=== PATIENT | male | born 1955 | race Hispanic/Latino ===

== ENCOUNTER 2017-05-03 08:24 | Inpatient (IN) | payer MEDICARE ==
[~2017-05-03] VITALS: Ht 165.1 cm; Wt 105.1 kg
[2017-05-03] MEDS ORDERED: KETOROLAC TROMETHAMINE 30MG/ML ONE (08:52)
[2017-05-03] MEDS ORDERED: DICYCLOMINE HCL 20 MG TAB ONE (08:53)
[2017-05-03 08:56] LABS: BASOPHILS % (AUTO) 0.7 % (0.0-5.0); EOSINOPHILS % (AUTO) 1.9 % (0.0-8.0); HEMATOCRIT 47.3 % (42-54); LYMPHOCYTES % (AUTO) 23.2 % (21.0-51.0); MEAN CORPUSCULAR HEMOGLOBIN 31.1 pg (27.0-33.0); MEAN CORPUSCULAR HGB CONC 33.6 g/dL (32.0-36.0); MEAN CORPUSCULAR VOLUME 92.6 fL (79-99); MONOCYTES % (AUTO) 7.3 % (3.0-13.0); NEUTROPHILS % (AUTO) 66.9 % (40.0-77.0); PLATELET COUNT (AUTO) 242 K/uL (130-400); RED CELL DISTRIBUTION WIDTH 13.1 % (11.0-15.5); WHITE BLOOD COUNT (AUTO) 6.1 K/uL (4.8-10.8)
[2017-05-03 09:08] LABS: CREATININE 0.9 mg/dL (0.5-1.5); POTASSIUM 3.7 mmol/L (3.5-5.1)
[2017-05-03 09:14] LABS: ALBUMIN 3.6 g/dL (3.5-5.0); BILIRUBIN,DIRECT 0.2 mg/dL (0.0-0.3); BILIRUBIN,TOTAL 0.6 mg/dL (0.2-1.0); TOTAL PROTEIN, SERUM 7.3 g/dL (6.0-8.3)
[2017-05-03] MEDS ORDERED: MORPHINE SULFATE 2 MG/ML 1ML SYG ONE ×5 (09:58→21:49)
[2017-05-03] MEDS ORDERED: PHENYTOIN SODIUM 100 MG ERCAP PO ONE (10:34)
[2017-05-03] MEDS ORDERED: SODIUM CHLORIDE 0.9% 1000ML 1,000 ML IV ONE (10:40)
[2017-05-03] MEDS ORDERED: ONDANSETRON HCL 4 MG/2 ML VIAL ONE ×2 (12:48→18:03)
[2017-05-03] MEDS ORDERED: FAMOTIDINE/PF 20 MG/2 ML VIAL IV ONE (12:49)
[2017-05-03 16:00] LABS: APPEARANCE,URINE Clear (CLEAR); BILIRUBIN,URINE Negative (NEGATIVE); COLOR,URINE Yellow (YELLOW); GLUCOSE, URINE (UA) Negative (NEGATIVE); KETONES,URINE Negative (NEGATIVE); LEUKOCYTE ESTERASE ,URINE Negative (NEGATIVE); NITRATE,URINE Negative (NEGATIVE); OCCULT BLOOD,URINE Negative (NEGATIVE); PH,URINE 5.5 (5.0-8.0); PROTEIN,URINE Trace (NEGATIVE)
[2017-05-03] MEDS ORDERED: ZOLPIDEM TARTRATE 5 MG TAB ONE (20:12)
[2017-05-03] MEDS ORDERED: HYDRALAZINE HCL 20 MG/ML VIAL IV PRN (21:45)
[2017-05-03] MEDS ORDERED: ACETAMINOPHEN 325 MG TAB PO PRN (21:45)
[2017-05-03] MEDS ORDERED: ONDANSETRON HCL 4 MG/2 ML VIAL IV PRN (21:45)
[2017-05-03 22:15] VITALS: BP 131/81
[2017-05-03] MEDS ORDERED: CEFTRIAXONE SODIUM 1 GM ONE (23:03)
[2017-05-03] MEDS: CEFTRIAXONE 1GM/D5W 50ML 50 ML IV SCH (23:14)
[2017-05-03] MEDS: SODIUM CHLORIDE 0.9% 1000ML 1,000 ML IV SCH (23:15)
[2017-05-04] VITALS: BP 113/80
[2017-05-04] MEDS: MORPHINE SULFATE 2 MG/ML 1ML SYG IV PRN ×5 (00:27→22:44)
[2017-05-04 04:00] VITALS: BP 121/80
[2017-05-04 05:17] LABS: EOSINOPHILS % (AUTO) 3.1 % (0.0-8.0); HEMATOCRIT 43.9 % (42-54); LYMPHOCYTES % (AUTO) 26.6 % (21.0-51.0); MEAN CORPUSCULAR HEMOGLOBIN 31.4 pg (27.0-33.0); MEAN CORPUSCULAR HGB CONC 33.9 g/dL (32.0-36.0); MEAN CORPUSCULAR VOLUME 92.7 fL (79-99); MONOCYTES % (AUTO) 10.3 % (3.0-13.0); PLATELET COUNT (AUTO) 236 K/uL (130-400); RED BLOOD CELL COUNT(AUTO) 4.73 MIL/uL (4.50-6.20); RED CELL DISTRIBUTION WIDTH 13.1 % (11.0-15.5); WHITE BLOOD COUNT (AUTO) 5.4 K/uL (4.8-10.8)
[2017-05-04 05:21] LABS: PHENYTOIN (DILANTIN) 2.7 mcg/mL (10.0-20.0); POTASSIUM 3.9 mmol/L (3.5-5.1)
[2017-05-04] MEDS: INSULIN LISPRO 100 UNIT/ML 3ML SQ SCH ×4 (06:52→21:00)
[2017-05-04] MEDS: SODIUM CHLORIDE 0.9% 1000ML 1,000 ML IV SCH ×2 (07:39→18:39)
[2017-05-04 07:43] VITALS: BP 124/80
[2017-05-04] MEDS ORDERED: PANTOPRAZOLE 40 MG/VIAL IVP SCH (09:00)
[2017-05-04] MEDS: FAMOTIDINE/PF 20 MG/2 ML VIAL IV SCH ×2 (10:56→21:08)
[2017-05-04 11:18] VITALS: BP 152/85
[2017-05-04] MEDS ORDERED: GABA-529 PO (11:33)
[2017-05-04] MEDS ORDERED: MEMA10TA11 PO (11:33)
[2017-05-04] MEDS ORDERED: PHEN100C23 PO (11:33)
[2017-05-04] MEDS ORDERED: LISI1TAB13 PO (11:33)
[2017-05-04 16:15] VITALS: BP 128/96
[2017-05-04 20:00] VITALS: BP 130/80
[2017-05-04] MEDS: CEFTRIAXONE SODIUM 1 GM IVP SCH (21:06)
[2017-05-04] MEDS: CEFTRIAXONE 1GM/D5W 50ML 50 ML IV SCH (21:07)
[2017-05-05] VITALS (12 sets, daily range): BP systolic 98–174; BP diastolic 62–105
[2017-05-05] MEDS: MORPHINE SULFATE 2 MG/ML 1ML SYG IV PRN ×3 (05:00→14:11)
[2017-05-05] MEDS: INSULIN LISPRO 100 UNIT/ML 3ML SQ SCH ×4 (05:23→21:00)
[2017-05-05] MEDS: FAMOTIDINE/PF 20 MG/2 ML VIAL IV SCH ×2 (08:23→20:44)
[2017-05-05] MEDS ORDERED: PHENYTOIN SODIUM 100 MG ERCAP PO SCH (14:00)
[2017-05-05] MEDS: GABAPENTIN 100 MG CAPSULE PO SCH ×2 (14:05→20:45)
[2017-05-05] MEDS ORDERED: LORAZEPAM 2 MG/ML 1 ML VIAL ONE (14:32)
[2017-05-05] MEDS ORDERED: SODIUM CHLORIDE 0.9% 1000ML 1,000 ML IV SCH (14:37)
[2017-05-05] MEDS ORDERED: LORAZEPAM 2 MG/ML 1 ML VIAL IVP PRN (14:45)
[2017-05-05 14:48] LABS: BASOPHILS % (AUTO) 1.1 % (0.0-5.0); HEMATOCRIT 45.4 % (42-54); MEAN CORPUSCULAR HEMOGLOBIN 30.9 pg (27.0-33.0); MEAN CORPUSCULAR HGB CONC 33.4 g/dL (32.0-36.0); MEAN CORPUSCULAR VOLUME 92.3 fL (79-99); NEUTROPHILS % (AUTO) 55.9 % (40.0-77.0); PLATELET COUNT (AUTO) 233 K/uL (130-400); RED BLOOD CELL COUNT(AUTO) 4.91 MIL/uL (4.50-6.20); RED CELL DISTRIBUTION WIDTH 13.1 % (11.0-15.5); WHITE BLOOD COUNT (AUTO) 5.5 K/uL (4.8-10.8)
[2017-05-05 14:59] LABS: INR 1.06 (0.85-1.15); PARTIAL THROMBOPLASTIN TIME 29.2 SEC (26.3-35.5); PROTHROMBIN TIME 11.1 SEC (9.6-11.6)
[2017-05-05] MEDS ORDERED: PHENYTOIN SODIUM 50 MG/ML 2ML VIAL IV SCH (15:00)
[2017-05-05 15:03] LABS: CARBON DIOXIDE 28 mmol/L (21-32); CHLORIDE 99 mmol/L (101-111); CREATININE 0.8 mg/dL (0.5-1.5); GLOMERULAR FILTR. RATE CALC 104 mL/min (>60); GLUCOSE,RANDOM 105 mg/dL (70-105); POTASSIUM 3.7 mmol/L (3.5-5.1); SODIUM SERUM 135 mmol/L (136-145); UREA NITROGEN, BLOOD 17 mg/dL (7-18)
[2017-05-05 15:22] LABS: CREATINE KINASE MB < 0.5 ng/mL (0.5-3.6); CREATINE KINASE, TOTAL 42 U/L (21-232); MYOGLOBIN 42 ng/mL (10-92); PHENYTOIN (DILANTIN) 1.3 mcg/mL (10.0-20.0); TROPONIN I < 0.04 ng/mL (0.00-0.06)
[2017-05-05] MEDS: SODIUM CHLORIDE 0.9% 1000ML 1,000 ML IV SCH ×3 (17:51→23:08)
[2017-05-05] MEDS: CEFTRIAXONE SODIUM 1 GM IVP SCH (20:44)
[2017-05-05] MEDS: MEMANTINE HCL 5 MG TABLET PO SCH (20:45)
[2017-05-05] MEDS: CEFTRIAXONE 1GM/D5W 50ML 50 ML IV SCH (20:52)
[2017-05-05] MEDS ORDERED: PHENYTOIN SODIUM 50MG/ML 2ML 0 MG in SODIUM CHLORIDE 0.9% 50 ML IV SCH (22:00)
[2017-05-05] MEDS: PHENYTOIN SODIUM 50 MG/ML 2ML VIAL IV SCH (22:25)
[2017-05-06] VITALS (7 sets, daily range): BP systolic 116–161; BP diastolic 74–96
[2017-05-06] MEDS: PHENYTOIN SODIUM 50 MG/ML 2ML VIAL IV SCH (05:06)
[2017-05-06] MEDS: INSULIN LISPRO 100 UNIT/ML 3ML SQ SCH ×4 (06:22→21:00)
[2017-05-06] MEDS: GABAPENTIN 100 MG CAPSULE PO SCH ×3 (08:13→19:39)
[2017-05-06] MEDS: HYDROCHLOROTHIAZIDE 25 MG TABLET PO SCH (08:13)
[2017-05-06] MEDS: LISINOPRIL 20 MG TABLET PO SCH (08:14)
[2017-05-06] MEDS: FAMOTIDINE/PF 20 MG/2 ML VIAL IV SCH ×2 (08:14→19:41)
[2017-05-06] MEDS: MEMANTINE HCL 5 MG TABLET PO SCH ×2 (08:14→19:41)
[2017-05-06] MEDS: SODIUM CHLORIDE 0.9% 1000ML 1,000 ML IV SCH ×2 (08:14→22:15)
[2017-05-06] MEDS ORDERED: PHENYTOIN SODIUM IV SCH (10:00)
[2017-05-06] MEDS ORDERED: SODIUM CHLORIDE 0.9% IV SCH (10:00)
[2017-05-06] MEDS: SODIUM CHLORIDE 0.9% IV SCH ×2 (13:43→22:14)
[2017-05-06] MEDS: PHENYTOIN SODIUM IV SCH ×2 (13:43→22:14)
[2017-05-06] MEDS ORDERED: PHENYTOIN SODIUM 50 MG/ML 2ML VIAL IV SCH (14:00)
[2017-05-06] MEDS: ZOLPIDEM TARTRATE 5 MG TAB PO PRN (19:40)
[2017-05-06] MEDS: WATER FOR INJECTION,STERILE 20 ML VIAL IJ SCH (19:41)
[2017-05-06] MEDS: CEFTRIAXONE SODIUM 1 GM IVP SCH (19:41)
[2017-05-06] MEDS: CEFTRIAXONE 1GM/D5W 50ML 50 ML IV SCH (21:28)
[2017-05-06] MEDS ORDERED: SODIUM CHLORIDE 0.9% 200 ML IV ONE (21:47)
[2017-05-06] MEDS ORDERED: PHENYTOIN SODIUM 50 MG/ML 2ML VIAL IV ONE (22:11)
[2017-05-07 04:00] VITALS: BP 120/81
[2017-05-07] MEDS: SODIUM CHLORIDE 0.9% 1000ML 1,000 ML IV SCH ×2 (05:39→11:13)
[2017-05-07] MEDS ORDERED: PHENYTOIN SODIUM 50 MG/ML 2ML VIAL IV ONE (05:49)
[2017-05-07] MEDS: PHENYTOIN SODIUM IV SCH (05:58)
[2017-05-07] MEDS: MORPHINE SULFATE 2 MG/ML 1ML SYG IV PRN ×3 (05:58→16:25)
[2017-05-07] MEDS: SODIUM CHLORIDE 0.9% IV SCH (05:58)
[2017-05-07] MEDS: INSULIN LISPRO 100 UNIT/ML 3ML SQ SCH ×4 (06:28→20:05)
[2017-05-07 08:00] VITALS: BP 119/79
[2017-05-07] MEDS: FAMOTIDINE/PF 20 MG/2 ML VIAL IV SCH ×2 (08:55→20:04)
[2017-05-07] MEDS: MEMANTINE HCL 5 MG TABLET PO SCH ×2 (08:56→20:04)
[2017-05-07] MEDS: GABAPENTIN 100 MG CAPSULE PO SCH ×3 (08:56→20:04)
[2017-05-07] MEDS: HYDROCHLOROTHIAZIDE 25 MG TABLET PO SCH (08:56)
[2017-05-07] MEDS: LISINOPRIL 20 MG TABLET PO SCH (08:56)
[2017-05-07 11:00] VITALS: BP 129/80
[2017-05-07 16:00] VITALS: BP 134/68
[2017-05-07] MEDS: ZOLPIDEM TARTRATE 5 MG TAB PO PRN (20:03)
[2017-05-07] MEDS: CEFTRIAXONE SODIUM 1 GM IVP SCH (20:04)
[2017-05-07] MEDS: WATER FOR INJECTION,STERILE 20 ML VIAL IJ SCH (20:04)
[2017-05-07] MEDS: PHENYTOIN SODIUM 50 MG/ML 2ML VIAL IV SCH (20:05)
[2017-05-07] MEDS: CEFTRIAXONE 1GM/D5W 50ML 50 ML IV SCH (20:06)
[2017-05-07 20:15] VITALS: BP 133/84
[2017-05-08] MEDS: SODIUM CHLORIDE 0.9% 1000ML 1,000 ML IV SCH ×3 (01:39→20:09)
[2017-05-08] MEDS: INSULIN LISPRO 100 UNIT/ML 3ML SQ SCH ×4 (05:53→20:10)
[2017-05-08 08:09] VITALS: BP 138/90
[2017-05-08] MEDS ORDERED: SODIUM CHLORIDE 0.9% 250 ML IV ONE (08:21)
[2017-05-08] MEDS: PHENYTOIN SODIUM 50 MG/ML 2ML VIAL IV SCH ×2 (08:26→19:51)
[2017-05-08] MEDS: HYDROCHLOROTHIAZIDE 25 MG TABLET PO SCH (08:37)
[2017-05-08] MEDS: LISINOPRIL 20 MG TABLET PO SCH (08:37)
[2017-05-08] MEDS: FAMOTIDINE/PF 20 MG/2 ML VIAL IV SCH ×2 (08:37→19:51)
[2017-05-08] MEDS: GABAPENTIN 100 MG CAPSULE PO SCH ×3 (08:37→20:11)
[2017-05-08] MEDS: MEMANTINE HCL 5 MG TABLET PO SCH ×2 (08:37→19:51)
[2017-05-08 11:35] VITALS: BP 149/98
[2017-05-08] MEDS: CYCLOBENZAPRINE HCL 10 MG TABLET PO SCH ×2 (15:26→20:11)
[2017-05-08 16:22] VITALS: BP 132/90
[2017-05-08 19:00] VITALS: BP 144/85
[2017-05-08] MEDS ORDERED: MAGNESIUM CITRATE 296 ML SOLUTION PO ONE (19:30)
[2017-05-08] MEDS: ZOLPIDEM TARTRATE 5 MG TAB PO PRN (19:51)
[2017-05-08] MEDS: CEFTRIAXONE SODIUM 1 GM IVP SCH (19:51)
[2017-05-08] MEDS: WATER FOR INJECTION,STERILE 20 ML VIAL IJ SCH (19:52)
[2017-05-08 23:45] VITALS: BP 112/58
[2017-05-09 04:00] VITALS: BP 124/78
[2017-05-09] MEDS: INSULIN LISPRO 100 UNIT/ML 3ML SQ SCH ×4 (06:21→21:00)
[2017-05-09] MEDS: SODIUM CHLORIDE 0.9% 1000ML 1,000 ML IV SCH ×2 (07:39→17:39)
[2017-05-09 07:50] VITALS: BP 144/89
[2017-05-09] MEDS: HYDROCHLOROTHIAZIDE 25 MG TABLET PO SCH (08:30)
[2017-05-09] MEDS: CYCLOBENZAPRINE HCL 10 MG TABLET PO SCH ×3 (08:30→19:57)
[2017-05-09] MEDS: LISINOPRIL 20 MG TABLET PO SCH (08:31)
[2017-05-09] MEDS: MEMANTINE HCL 5 MG TABLET PO SCH ×2 (08:31→19:57)
[2017-05-09] MEDS: GABAPENTIN 100 MG CAPSULE PO SCH ×3 (08:31→19:57)
[2017-05-09] MEDS: PHENYTOIN SODIUM 50 MG/ML 2ML VIAL IV SCH ×2 (08:47→19:55)
[2017-05-09] MEDS: FAMOTIDINE/PF 20 MG/2 ML VIAL IV SCH ×2 (08:47→19:55)
[2017-05-09] MEDS ORDERED: SODIUM CHLORIDE 0.9% 250 ML IV ONE (08:49)
[2017-05-09 11:27] VITALS: BP 141/92
[2017-05-09 16:30] VITALS: BP 118/79
[2017-05-09] MEDS: CEFTRIAXONE SODIUM 1 GM IVP SCH (19:55)
[2017-05-09] MEDS: WATER FOR INJECTION,STERILE 20 ML VIAL IJ SCH (19:56)
[2017-05-09] MEDS: ZOLPIDEM TARTRATE 5 MG TAB PO PRN (19:57)
[2017-05-09 20:00] VITALS: BP 157/91
[2017-05-10] VITALS (24 sets, daily range): BP systolic 115–155; BP diastolic 73–96
[2017-05-10] MEDS: SODIUM CHLORIDE 0.9% 1000ML 1,000 ML IV SCH ×3 (04:26→20:03)
[2017-05-10] MEDS: INSULIN LISPRO 100 UNIT/ML 3ML SQ SCH ×4 (06:30→21:00)
[2017-05-10] MEDS: PHENYTOIN SODIUM 50 MG/ML 2ML VIAL IV SCH ×2 (08:10→19:58)
[2017-05-10] MEDS: FAMOTIDINE/PF 20 MG/2 ML VIAL IV SCH ×2 (08:10→19:59)
[2017-05-10] MEDS: GABAPENTIN 100 MG CAPSULE PO SCH ×4 (09:00→19:59)
[2017-05-10] MEDS: MEMANTINE HCL 5 MG TABLET PO SCH ×2 (09:00→19:59)
[2017-05-10] MEDS: CYCLOBENZAPRINE HCL 10 MG TABLET PO SCH ×3 (09:00→19:59)
[2017-05-10] MEDS: LISINOPRIL 20 MG TABLET PO SCH (09:00)
[2017-05-10] MEDS: HYDROCHLOROTHIAZIDE 25 MG TABLET PO SCH (09:00)
[2017-05-10] MEDS ORDERED: LIDOCAINE PF 2% 5ML ABBOJECT ONE (10:43)
[2017-05-10] MEDS ORDERED: ONDANSETRON HCL 4 MG/2 ML VIAL ONE (10:43)
[2017-05-10] MEDS ORDERED: PROPOFOL 10 MG/ML 20ML VIAL IV ONE (10:43)
[2017-05-10] MEDS ORDERED: DEXAMETHASONE SOD PHOSPHATE 10MG/ML 1ML VIAL ONE (10:43)
[2017-05-10] MEDS ORDERED: MIDAZOLAM HCL 1 MG/ML 2ML VIAL ONE (10:43)
[2017-05-10] MEDS ORDERED: GLYCOPYRROLATE 0.2 MG/ML 5 ML VIAL ONE (10:43)
[2017-05-10] MEDS ORDERED: FENTANYL CITRATE PF 50 MCG/1 ML 2ML VIAL ONE ×2 (10:45→12:31)
[2017-05-10] MEDS ORDERED: BACITRACIN 50,000 UNIT VIAL ONE (11:12)
[2017-05-10] MEDS ORDERED: BUPIVACAINE/PF 0.5% 30ML VIAL ONE (11:36)
[2017-05-10] MEDS ORDERED: LIDOCAINE 1%-EPI 1:100,000 20 ML VIAL IJ ONE (11:36)
[2017-05-10] MEDS ORDERED: BUPIVACAINE/PF 0.25% 30ML VIAL IJ ONE (11:36)
[2017-05-10] MEDS ORDERED: BACITRACIN 28.4 GM OINT TP ONE (12:29)
[2017-05-10] MEDS ORDERED: MEPERIDINE-PF 25 MG/ML SYG ONE ×2 (12:58→13:09)
[2017-05-10] MEDS: MORPHINE SULFATE 2 MG/ML 1ML SYG IV PRN ×2 (14:43→18:48)
[2017-05-10] MEDS: WATER FOR INJECTION,STERILE 20 ML VIAL IJ SCH (19:58)
[2017-05-10] MEDS: CEFTRIAXONE SODIUM 1 GM IVP SCH (19:58)
[2017-05-10] MEDS: MORPHINE SULFATE 4 MG/1ML SYG IV PRN (22:00)
[2017-05-10] MEDS: ZOLPIDEM TARTRATE 5 MG TAB PO PRN (23:48)
[2017-05-11] VITALS: BP 136/85
[2017-05-11] MEDS: MORPHINE SULFATE 4 MG/1ML SYG IV PRN ×3 (02:45→12:46)
[2017-05-11 04:00] VITALS: BP 128/73
[2017-05-11 05:39] LABS: CREATININE 0.8 mg/dL (0.5-1.5); POTASSIUM 4.1 mmol/L (3.5-5.1)
[2017-05-11 05:41] LABS: MEAN CORPUSCULAR HEMOGLOBIN 31.8 pg (27.0-33.0); MEAN CORPUSCULAR VOLUME 93.4 fL (79-99); PLATELET COUNT (AUTO) 191 K/uL (130-400); RED BLOOD CELL COUNT(AUTO) 4.28 MIL/uL (4.50-6.20); WHITE BLOOD COUNT (AUTO) 7.6 K/uL (4.8-10.8)
[2017-05-11 06:04] LABS: BAND NEUTROPHILS % (MANUAL) 2 % (0-2); BASOPHILS % (MANUAL) 3 % (0-2); EOSINOPHILS % (MANUAL) 1 % (1-6); LYMPHOCYTES % (MANUAL) 13 % (22-44); MAN.DIFF COMMENT-IMPRESSION MANUAL DIFFERENTIAL; MONOCYTES % (MANUAL) 6 % (2-9); PLATELET MORPHOLOGY COMMENT ADEQUATE; SEGMENTED NEUTROPHILS % 75 % (40-70)
[2017-05-11] MEDS: INSULIN LISPRO 100 UNIT/ML 3ML SQ SCH ×4 (06:07→21:00)
[2017-05-11 08:05] VITALS: BP 147/83
[2017-05-11] MEDS: LISINOPRIL 20 MG TABLET PO SCH (08:23)
[2017-05-11] MEDS: FAMOTIDINE/PF 20 MG/2 ML VIAL IV SCH ×2 (08:23→20:41)
[2017-05-11] MEDS: HYDROCHLOROTHIAZIDE 25 MG TABLET PO SCH (08:23)
[2017-05-11] MEDS: CYCLOBENZAPRINE HCL 10 MG TABLET PO SCH ×3 (08:23→20:41)
[2017-05-11] MEDS: MEMANTINE HCL 5 MG TABLET PO SCH ×2 (08:23→20:40)
[2017-05-11] MEDS: GABAPENTIN 100 MG CAPSULE PO SCH ×3 (08:24→20:40)
[2017-05-11] MEDS: PHENYTOIN SODIUM 50 MG/ML 2ML VIAL IV SCH (08:24)
[2017-05-11] MEDS ORDERED: COMPOUND IV MISC 1 EACH IVSOLN MISC PRN (08:45)
[2017-05-11] MEDS: PHENYTOIN SODIUM 50MG/ML 2ML 200 MG in SODIUM CHLORIDE 0.9% 50 ML IV SCH ×2 (09:02→22:02)
[2017-05-11] MEDS: SODIUM CHLORIDE 0.9% 1000ML 1,000 ML IV SCH ×2 (09:39→20:42)
[2017-05-11 11:26] VITALS: BP 140/81
[2017-05-11 16:18] VITALS: BP 104/58
[2017-05-11] MEDS: LACTULOSE 20 GM/30 ML UDCUP PO PRN (18:24)
[2017-05-11] MEDS: ZOLPIDEM TARTRATE 5 MG TAB PO PRN (18:35)
[2017-05-11 19:00] VITALS: BP 121/74
[2017-05-11] MEDS ORDERED: PHENYTOIN SODIUM 50 MG/ML 2ML VIAL IV ONE (19:40)
[2017-05-11] MEDS: WATER FOR INJECTION,STERILE 20 ML VIAL IJ SCH (20:41)
[2017-05-11] MEDS: CEFTRIAXONE SODIUM 1 GM IVP SCH (20:41)
[2017-05-12 00:06] VITALS: BP 125/74
[2017-05-12] MEDS: SODIUM CHLORIDE 0.9% 1000ML 1,000 ML IV SCH ×2 (01:26→15:39)
[2017-05-12 04:00] VITALS: BP 102/63
[2017-05-12] MEDS: INSULIN LISPRO 100 UNIT/ML 3ML SQ SCH ×4 (05:49→21:00)
[2017-05-12 06:56] VITALS: BP 112/60
[2017-05-12] MEDS: MEMANTINE HCL 5 MG TABLET PO SCH ×2 (08:38→19:41)
[2017-05-12] MEDS: GABAPENTIN 100 MG CAPSULE PO SCH ×3 (08:38→19:42)
[2017-05-12] MEDS: CYCLOBENZAPRINE HCL 10 MG TABLET PO SCH ×3 (08:38→19:41)
[2017-05-12] MEDS: FAMOTIDINE/PF 20 MG/2 ML VIAL IV SCH ×2 (08:38→19:42)
[2017-05-12] MEDS: HYDROCHLOROTHIAZIDE 25 MG TABLET PO SCH (08:39)
[2017-05-12] MEDS: LISINOPRIL 20 MG TABLET PO SCH (08:39)
[2017-05-12] MEDS: OXYCODONE/ACETAMIN 5/325MG TAB PO PRN ×3 (08:39→21:22)
[2017-05-12] MEDS: PHENYTOIN SODIUM 50MG/ML 2ML 200 MG in SODIUM CHLORIDE 0.9% 50 ML IV SCH (10:06)
[2017-05-12 11:00] VITALS: BP 115/72
[2017-05-12] MEDS: PHENYTOIN SODIUM 100 MG ERCAP PO SCH ×2 (14:43→19:42)
[2017-05-12 16:00] VITALS: BP 120/69
[2017-05-12] MEDS: ZOLPIDEM TARTRATE 5 MG TAB PO PRN (19:41)
[2017-05-12] MEDS: CEFTRIAXONE SODIUM 1 GM IVP SCH (19:42)
[2017-05-12 19:51] VITALS: BP 102/65
[2017-05-13 00:20] VITALS: BP 104/58
[2017-05-13] MEDS: OXYCODONE/ACETAMIN 5/325MG TAB PO PRN (00:49)
[2017-05-13] MEDS: SODIUM CHLORIDE 0.9% 1000ML 1,000 ML IV SCH (01:02)
[2017-05-13] MEDS: MORPHINE SULFATE 4 MG/1ML SYG IV PRN (02:22)
[2017-05-13 04:00] VITALS: BP 104/74
[2017-05-13] MEDS: INSULIN LISPRO 100 UNIT/ML 3ML SQ SCH ×2 (07:30→11:30)
[2017-05-13 08:00] VITALS: BP 111/70
[2017-05-13] MEDS: GABAPENTIN 100 MG CAPSULE PO SCH ×2 (09:00→14:16)
[2017-05-13] MEDS: LISINOPRIL 20 MG TABLET PO SCH (09:00)
[2017-05-13] MEDS: HYDROCHLOROTHIAZIDE 25 MG TABLET PO SCH (09:00)
[2017-05-13] MEDS: CYCLOBENZAPRINE HCL 10 MG TABLET PO SCH ×2 (09:00→14:17)
[2017-05-13] MEDS: LACTULOSE 20 GM/30 ML UDCUP PO PRN (10:45)
[2017-05-13] MEDS: MEMANTINE HCL 5 MG TABLET PO SCH (10:46)
[2017-05-13] MEDS: FAMOTIDINE/PF 20 MG/2 ML VIAL IV SCH (10:46)
[2017-05-13] MEDS: PHENYTOIN SODIUM 100 MG ERCAP PO SCH ×2 (10:46→14:16)
[2017-05-13] MEDS ORDERED: CYCL10TA7 PO (11:26)
[2017-05-13] MEDS ORDERED: PHENY100 PO (11:26)
[2017-05-13 11:44] VITALS: BP 101/73
[2017-05-13 16:00] VITALS: BP 130/87
== END 2017-05-13 17:11 | disposition home or self-care (01) | DRG 353 ==
LOC: EDH 08:24 → EDHIP 11:59 → 4BH 21:55
PROVIDERS: ADMIT Family Medicine; ATTEND Family Medicine
PROC: 0WUF4JZ Supplement Abdominal Wall with Synthetic Substitute, Percutaneous Endoscopic Approach (ICD-10-PCS; principal; 2017-05-10 11:12)
DX: K40.90 Unilateral inguinal hernia, without obstruction or gangrene, not specified as recurrent (principal); K85.90 Acute pancreatitis without necrosis or infection, unspecified; F03.90 Unspecified dementia, unspecified severity, without behavioral disturbance, psychotic disturbance, mood disturbance, and anxiety; E66.01 Morbid (severe) obesity due to excess calories; K42.9 Umbilical hernia without obstruction or gangrene; E11.9 Type 2 diabetes mellitus without complications; G89.29 Other chronic pain; I10 Essential (primary) hypertension; G40.909 Epilepsy, unspecified, not intractable, without status epilepticus; F10.10 Alcohol abuse, uncomplicated; N20.0 Calculus of kidney; F79 Unspecified intellectual disabilities; I25.10 Atherosclerotic heart disease of native coronary artery without angina pectoris; Z68.38 Body mass index [BMI] 38.0-38.9, adult; Z90.49 Acquired absence of other specified parts of digestive tract
CPT/HCPCS: 36415; 74176; 76705; 80048; 80076; 80185; 81003; 82550; 82553; 82948; 83690; 83874; 84484; 85025; 85610; 85730; 88302; 93005; A4344; A6454; C1781; C9113; J0360; J0696; J1100; J1165; J1885; J2001; J2060; J2175; J2250; J2270; J2405; J2704; J3010; J3490; J7030